=== PATIENT | female | born 1980 | race Caucasian/White ===

== ENCOUNTER 2016-12-24 16:16 | Emergency (ER) | payer OTHER ==
[~2016-12-24] VITALS: Ht 157.5 cm; Wt 78.0 kg
[2016-12-24 16:19] VITALS: Ht 157.5 cm; Wt 78.0 kg
[2016-12-24] MEDS ORDERED: PRED20TA PO (18:00)
[2016-12-24] MEDS ORDERED: NAPR-260 PO (18:00)
--- NOTE | 2016-12-24 18:05 | ERD ---
ER Documentation Chief Complaint Date/Time DATE: 12/24/16 TIME: 18:04 Chief Complaint flu like symtoms since saturday HPI This is a 36-year-old female presents to the ER with sore throats, fatigue, fever since Saturday. Patient denies any difficulty in swallowing. She denies any chest pain or shortness of breath. Patient denies any cough. Patient does admit to a runny nose. ROS 12 point review of systems was done, all negative except per HPI. Medications Home Meds Active Scripts Prednisone* (Prednisone*) 20 Mg Tab, 40 MG PO DAILY for 3 Days, TAB Prov:MORGAN THAKKAR Mil 12/24/16 Naproxen* (Naprosyn*) 500 Mg Tablet, 500 MG PO BID Y for PAIN AND/OR INFLAMMATION, #30 TAB Prov:BIJANMORGAN VILLEDA 12/24/16 Physical Exam Vitals Vital Signs Date Time Temp Pulse Resp B/P Pulse Ox O2 Delivery O2 Flow Rate FiO2 12/24/16 16:19 99.4 119 24 124/79 99 Physical Exam GENERAL: The patient is well-developed, well-nourished, in no acute distress. NECK: Cervical spine is non tender with no step off. Supple, no nuchal rigidity HEENT: Atraumatic. Pupils equal, round and reactive to light. Extraocular muscles are grossly intact. Conjunctivae pink, no discharge. Bilateral tympanic membranes are clear with no evidence of erythema, effusion or dulling of the light reflex. Tonsilar erythema with no exudates or uvular deviation. Clear rhinorrhea. RESPIRATORY: Clear to auscultation bilaterally. There are no rales, wheezes or rhonchi. HEART: Regular rate and rhythm. No murmurs, clicks, rubs or gallops. EXTREMITIES: No clubbing or cyanosis. Full range of motion. Grossly neurovascularly intact. NEUROLOGIC: Alert and oriented. Cranial nerves II through XII are intact. SKIN: There is no rash. The skin is warm and dry. Procedures/MDM Differential diagnosis includes but is not limited to; Viral URI, allergic rhinitis, bronchitis, pertussis,pneumonia. This is likely viral in etiology. Clinical suspicion for pneumonia is low as patient appears well, is not hypoxic or in any respiratory distress. Additionally, patients physical examination is benign. Plan was discussed with patient they understand and agree. Patient needs to follow up with PCP in 1-2 days or return to ER sooner if symptoms worsen. Departure Diagnosis: Primary Impression: Sore throat Condition: Stable Patient Instructions: Self-Care for Sore Throats Additional Instructions: Call your primary care doctor TOMORROW for an appointment during the next 1-2 days.See the doctor sooner or return here if your condition worsens before your appointment time. MORGAN THAKKAR Dec 24, 2016 18:05
== END 2016-12-24 18:01 | disposition home or self-care (01) ==
LOC: E/R 16:16
DX: J02.9 Acute pharyngitis, unspecified (principal)
CPT/HCPCS: 99283

== ENCOUNTER 2017-06-18 08:11 | Emergency (ER) | payer OTHER ==
[~2017-06-18] VITALS: Ht 160 cm; Wt 78.0 kg
[~2017-06-18 08:11] MED LIST: NAPR-260 PO; PRED20TA PO
[2017-06-18 08:12] VITALS: Ht 160 cm; Wt 78.0 kg
--- NOTE | 2017-06-18 09:10 | ERD ---
ER Documentation Chief Complaint Date/Time DATE: 06/18/17 TIME: 09:04 Chief Complaint flu x 5 days HPI 37-year-old female presents to the emergency department complaining of 5 days of upper respiratory symptoms including cough runny nose sore throat and chest congestion. Denies fever or chills. The patient has taken [id number] medications with moderate improvement of her symptoms. She is requesting a note to be off work for couple days ROS All systems reviewed and are negative except as per history of present illness. Medications Home Meds Active Scripts Prednisone* (Prednisone*) 20 Mg Tab, 40 MG PO DAILY for 3 Days, TAB Prov:JAVY THAKKARNA C 12/24/16 Naproxen* (Naprosyn*) 500 Mg Tablet, 500 MG PO BID Y for PAIN AND/OR INFLAMMATION, #30 TAB Prov:BIJAN,MORGAN C 12/24/16 Allergies Allergies: Coded Allergies: Penicillins (Verified Allergy, Mild, UNKNOWN, 06/18/17) PMhx/Soc Medical and Surgical Hx: pt denies Medical Hx, pt denies Surgical Hx History of Surgery: No Anesthesia Reaction: No Hx Neurological Disorder: No Hx Respiratory Disorders: No Hx Cardiac Disorders: No Hx Psychiatric Problems: Yes (DEPRESSION) Hx Miscellaneous Medical Probl: No Hx Alcohol Use: No Hx Substance Use: No Hx Tobacco Use: No Smoking Status: Never smoker Physical Exam Vitals Vital Signs Date Time Temp Pulse Resp B/P Pulse Ox O2 Delivery O2 Flow Rate FiO2 06/18/17 08:12 98.2 79 18 115/74 96 Physical Exam Const: [] Head: Atraumatic Eyes: Normal Conjunctiva ENT: Erythematous oropharynx. Normal External Ears, Resp: Clear to auscultation bilaterally Cardio: Regular rate and rhythm, no murmurs Neur: Awake and alert Procedures/MDM Upper respiratory symptoms most likely viral infection patient is stable vital signs reviewed and in normal limits no indication at this time for antibiotics recommend supportive treatment Departure Diagnosis: Primary Impression: Upper respiratory infection Condition: Stable Patient Instructions: Preventing Common Respiratory Infections Additional Instructions: Follow-up with your primary physician in 4-7 days. Return to the emergency department if not improvement of the symptoms or the symptoms worsen URIAH ANDRADE MD Jun 18, 2017 09:10
[2017-06-18] MEDS ORDERED: D-ME473S2 PO (09:14)
== END 2017-06-18 09:20 | disposition home or self-care (01) ==
LOC: FTE 08:11
DX: J06.9 Acute upper respiratory infection, unspecified (principal)
CPT/HCPCS: 99283

== ENCOUNTER 2017-09-19 21:22 | Emergency (ER) | END 2017-09-20 00:30 | disposition home or self-care (01) ==